=== PATIENT | male | born 1980 | race Caucasian/White ===

== ENCOUNTER 2019-07-10 11:37 | Outpatient (CLI) | payer OTHER, SELFPAY ==
--- NOTE | 2019-07-10 11:48 | DI.RAD_ITS ---
EXAM: XR LUMBAR SPINE COMPLETE INDICATION: BACK PAIN M54.9. COMPARISON: No exams were available for comparison TECHNIQUE: 2D digital imaging was performed. FINDINGS: There are 5 lumbar type vertebral bodies. There is a slight scoliosis. No spondylolysis or spondylo listhesis is seen. The disc spaces are well maintained. IMPRESSION: Mild scoliosis.
--- NOTE | 2019-07-10 11:49 | DI.RAD_ITS ---
EXAM: XR SACROILIAC JOINTS INDICATION: BACK PAIN M54.9. COMPARISON: No exams were available for comparison TECHNIQUE: 2D digital imaging was performed. FINDINGS: There is no widening of the SI joints or pubic symphysis. There are no significant degenerative [place] ges or evidence of bony erosions. There is no acute or old fracture deformity. IMPRESSION: Negative SI joints.
== END 2019-07-10 11:57 ==
PROVIDERS: PCP Internal Medicine; Visit Provider Physician Assistant
DX: M54.5 Low back pain (principal); M41.86 Other forms of scoliosis, lumbar region
CPT/HCPCS: 72110; 72202

== ENCOUNTER 2023-02-15 17:54 | Outpatient (REF) | payer OTHER, SELFPAY ==
[2023-02-15 22:13] LABS: Abs Immature Grans 0.03 10^3/uL (0.0-0.06); Absolute Basophil Count 0.06 10^3/uL (0.0-0.2); Absolute Eosinophil Count 0.34 10^3/uL (0.0-0.7); Absolute Lymphocyte Count 2.96 10^3/uL (1.2-3.4); Absolute Monocyte Count 0.64 10^3/uL (0.1-0.8); Absolute Neutrophil Count 5.95 10^3/uL (1.2-6.7); Basophils % 0.6; Eosinophils % 3.4; HCT 47.3 % (40.0-50.0); HGB 16.4 g/dL (13.5-17.5); Immature Grans % 0.3; Lymphocytes % 29.7; MCH 31.9 pg (27.0-33.0); MCHC 34.7 % (32.0-36.0); MCV 92 fL (80-95); MPV 11.9 fL (8.0-11.0); Monocytes % 6.4; Neutrophils % 59.6; Platelet Count 218 10^3/uL (130-400); RBC 5.14 10^6/uL (4.36-5.78); RDW 13.1 % (11.8-14.1); RDW-SD 44.8 fL; WBC 9.98 10^3/uL (4.4-10.8)
[2023-02-15 22:32] LABS: ALT 24 U/L (16-63); AST 14 U/L (15-37); Alkaline Phosphatase 109 U/L (46-116); Anion Gap 10.3 mmol/L (3-11); BUN 15 mg/dL (7-18); Bilirubin, Total 0.4 mg/dL (0.2-1.0); CO2 25.7 mmol/L (21.0-32.0); CREATININE 0.9 mg/dL (0.70-1.30); Calcium 9.7 mg/dL (8.5-10.1); Chloride 101 mmol/L (98-107); Estimated GFR 108.68 (mL/min/1.73m2); Glucose 108 mg/dL (74-106); Potassium 4.1 mmol/L (3.5-5.1); Sodium 137 mmol/L (136-145); TSH (W/Ref FT4) 2.23 uIU/mL (0.36-3.74); Total Protein 7.8 g/dL (6.4-8.2)
== END 2023-02-15 17:55 | disposition home or self-care (01) ==
LOC: NCHCN 17:54
PROVIDERS: PCP Internal Medicine; Visit Provider Physician Assistant
DX: K92.1 Melena (principal)
CPT/HCPCS: 80053; 84443; 85025